=== PATIENT | female | born 1950 | race Caucasian/White ===

== ENCOUNTER 2018-11-02 19:30 | Outpatient (CLI) | payer MEDICARE | END 2018-11-02 19:31 | disposition home or self-care (01) | LOC: SLEEPLAB 19:30 | PROVIDERS: ATTEND Family Medicine | DX: F51.9 Sleep disorder not due to a substance or known physiological condition, unspecified (principal); G47.10 Hypersomnia, unspecified; G47.9 Sleep disorder, unspecified; R53.83 Other fatigue; E66.9 Obesity, unspecified; K21.9 Gastro-esophageal reflux disease without esophagitis; R06.83 Snoring; F41.9 Anxiety disorder, unspecified; G47.00 Insomnia, unspecified; I10 Essential (primary) hypertension; E11.9 Type 2 diabetes mellitus without complications; G47.33 Obstructive sleep apnea (adult) (pediatric) | CPT/HCPCS: 95810 ==

== ENCOUNTER 2022-05-23 16:22 | Observation (INO) | payer MEDICARE ==
[~2022-05-23 16:22] MED LIST: Iopamidol-370 76% 500 ML 1 ML ONE
[2022-05-23 17:21] LABS: #Basophils 0.1 thou/uL (0.0-0.2); #Eosinphils 0.2 thou/uL (0.0-0.7); #Lymphocytes 2.6 thou/uL (1.20-3.40); #Monocytes 0.6 thou/uL (0.11-0.59); #Neutrophils 5.2 thou/uL (1.40-6.50); %Basophils 0.7 % (0.0-1.0); %Eosinophils 2.4 % (0.0-10.0); %Lymphocytes 29.6 % (21.0-51.0); %Monocytes 6.7 % (0.0-10.0); %Neutrophils 60.6 % (42.0-75.0); Hemoglobin 17.2 g/dL (12.0-16.0); Mean Corpuscular HGB CONC 34.5 g/dL (32.0-36.0); Mean Corpuscular Hemoglobin 32.4 pg (27.0-31.0); Mean Corpuscular Volume 93.8 fL (78.0-98.0); Mean Platelet Volume 8.2 fL (7.4-10.4); Platelet Count 258 thou/uL (130-400); RBC Distribution Width 15.8 % (11.5-14.5); White Blood Cell (WBC) Count 8.6 thou/uL (4.8-10.8)
[2022-05-23 17:38] LABS: ALT (SGPT) 31 U/L (8-55); AST (SGOT) 24 U/L (5-34); Albumin 4.2 g/dL (3.4-4.8); Alkaline Phosphatase 123 U/L (40-110); Anion Gap 16 mmol/L (10-20); BUN (Urea Nitrogen) 17 mg/dL (9.8-20.1); Bilirubin, Total 0.6 mg/dL (0.2-1.2); CK (CPK) 36 U/L (29-168); Calc. Creatinine Clearance 0 mL/min (70-130); Calcium 10.8 mg/dL (7.8-10.44); Carbon Dioxide 29 mmol/L (23-31); Chloride 97 mmol/L (98-107); Estimated GFR 74; Globulin 3.4 g/dL (2.4-3.5); Glucose 170 mg/dL (80-115); Potassium 3.1 mmol/L (3.5-5.1); Protein, Total 7.6 g/dL (5.8-8.1); Sodium 139 mmol/L (136-145)
[2022-05-23 17:58] LABS: Lipase 25 U/L (8-78); Magnesium 2.1 mg/dL (1.6-2.6)
[2022-05-23] MEDS ORDERED: Meclizine HCl 25 MG TAB ONE (18:22)
[2022-05-23 20:09] LABS: Bilirubin Negative (Negative); Blood, Urine Negative (Negative); Clarity Clear (Clear); Glucose, Urine (Dipstick) Normal (Negative); Ketone, Urine Negative (Negative); Leukocyte Negative Leu/uL (Negative); Nitrite Negative (Negative); Protein, Urine (Dipstick) Negative (Neg-Trace); Specific Gravity, Urine 1.005 (1.002-1.036); Urobilinogen Normal mg/dL (Less than 2)
[2022-05-23] MEDS ORDERED: Lorazepam 2 MG/ML VIAL ONE (20:15)
[2022-05-23] MEDS ORDERED: Potassium Bicarbonate/Cit Ac 20 MEQ TAB PO SCH (22:30)
[2022-05-23 23:31] VITALS: BMI 28.6
[2022-05-24] MEDS: Sodium Chloride 0.9% 1,000 ML IV SCH ×2 (00:43→09:19)
[2022-05-24] MEDS ORDERED: HumaLOG 300 UNITS/3 ML VIAL SC PRN (04:42)
[2022-05-24] MEDS ORDERED: Dextrose 5% in Water 1,000 ML IV PRN (04:42)
[2022-05-24] MEDS ORDERED: Ondansetron PF 4 MG/2 ML Vial IVP PRN (04:42)
[2022-05-24] MEDS ORDERED: Acetaminophen 325 MG TAB PO PRN (04:42)
[2022-05-24] MEDS ORDERED: Dextrose 50% Abboject 50 ML SYRINGE SLOW IVP PRN (04:42)
[2022-05-24] MEDS ORDERED: predniSONE 20 MG TAB PO SCH (05:00)
[2022-05-24 05:23] LABS: #Basophils 0.1 thou/uL (0.0-0.2); #Eosinphils 0.3 thou/uL (0.0-0.7); #Monocytes 0.5 thou/uL (0.11-0.59); #Neutrophils 5.5 thou/uL (1.40-6.50); %Basophils 0.7 % (0.0-1.0); %Eosinophils 2.7 % (0.0-10.0); %Lymphocytes 32.4 % (21.0-51.0); %Monocytes 5.4 % (0.0-10.0); %Neutrophils 58.7 % (42.0-75.0); Hemoglobin 16.7 g/dL (12.0-16.0); Mean Corpuscular HGB CONC 33.3 g/dL (32.0-36.0); Mean Corpuscular Hemoglobin 33.2 pg (27.0-31.0); Mean Corpuscular Volume 99.5 fL (78.0-98.0); Mean Platelet Volume 11.4 fL (7.4-10.4); Platelet Count 172 thou/uL (130-400); RBC Distribution Width 12.5 % (11.5-14.5); Red Blood Cell (RBC) Count 5.03 mill/uL (4.20-5.40); White Blood Cell (WBC) Count 9.4 thou/uL (4.8-10.8)
[2022-05-24] MEDS ORDERED: Nicotine 21 MG PATCH TD SCH (06:00)
[2022-05-24 08:03] LABS: Chloride 104 mmol/L (98-107); Sodium 140 mmol/L (136-145)
[2022-05-24 08:04] LABS: Glucose 142 mg/dL (80-115)
[2022-05-24 08:06] LABS: Anion Gap 10 mmol/L (10-20); Carbon Dioxide 29 mmol/L (23-31)
[2022-05-24 08:08] LABS: BUN (Urea Nitrogen) 12 mg/dL (9.8-20.1); Calc. Creatinine Clearance 99 mL/min (70-130); Estimated GFR 94
[2022-05-24 08:11] LABS: Calcium 9.1 mg/dL (7.8-10.44)
[2022-05-24] MEDS ORDERED: Potassium Chloride 20 MEQ TAB PO SCH (08:45)
[2022-05-24] MEDS ORDERED: Amlodipine 5 MG TAB PO SCH (09:00)
[2022-05-24] MEDS ORDERED: Famotidine 20 MG TAB PO SCH (09:00)
[2022-05-24] MEDS ORDERED: Lisinopril/Hydrochlorothiazide 20/25 mg Tablet PO SCH (09:00)
[2022-05-24] MEDS ORDERED: Amlodipine 10 MG TAB PO SCH (10:45)
[2022-05-24] MEDS ORDERED: metFORMIN 500 MG TAB PO SCH (12:00)
[2022-05-24 16:45] VITALS: BP 156/81; TEMP 97.8
[2022-05-24] MEDS ORDERED: Aspirin Chewable 81 MG TAB PO SCH (21:00)
[2022-05-25] MEDS ORDERED: Amlodipine 10 MG TAB PO SCH (09:00)
== END 2022-05-24 17:30 | disposition home or self-care (01) ==
LOC: ERS 16:22 → NEURO 22:30
PROVIDERS: ADMIT Internal Medicine; ATTEND Internal Medicine
DX: H81.10 Benign paroxysmal vertigo, unspecified ear (principal); I10 Essential (primary) hypertension; F17.210 Nicotine dependence, cigarettes, uncomplicated; D75.1 Secondary polycythemia; E11.9 Type 2 diabetes mellitus without complications; I65.21 Occlusion and stenosis of right carotid artery; M47.812 Spondylosis without myelopathy or radiculopathy, cervical region; M50.322 Other cervical disc degeneration at C5-C6 level; I08.1 Rheumatic disorders of both mitral and tricuspid valves; R00.1 Bradycardia, unspecified; Z79.82 Long term (current) use of aspirin; Z79.84 Long term (current) use of oral hypoglycemic drugs; Z79.899 Other long term (current) drug therapy; Z88.0 Allergy status to penicillin; Z88.1 Allergy status to other antibiotic agents; Z20.822 Contact with and (suspected) exposure to COVID-19
CPT/HCPCS: 70450; 70498; 71045; 80048; 80053; 81003; 82550; 82962; 83690; 83735; 83880; 84484; 85025 ×2; 93005; 93306; 96361 ×2; 96374; 99285; G0378 ×3; U0003; U0005; 36415; 36416; J2060; J7050; Q9967

== ENCOUNTER 2023-05-07 16:35 | Inpatient (IN) | payer MEDICARE ==
[2023-05-07 19:02] LABS: #Eosinphils 0.2 thou/uL (0.0-0.7); #Monocytes 0.6 thou/uL (0.11-0.59); %Basophils 0.4 % (0.0-1.0); %Eosinophils 1.6 % (0.0-10.0); %Lymphocytes 23.8 % (21.0-51.0); %Monocytes 6.2 % (0.0-10.0); %Neutrophils 67.5 % (42.0-75.0); Hemoglobin 15.4 g/dL (12.0-16.0); Mean Corpuscular HGB CONC 34.2 g/dL (32.0-36.0); Mean Corpuscular Hemoglobin 31.9 pg (27.0-31.0); Mean Corpuscular Volume 93.2 fl (78.0-98.0); Mean Platelet Volume 12.1 fL (7.4-10.4); Platelet Count 282 10x3/uL (130-400); RBC Distribution Width 13.8 % (11.5-14.5); Red Blood Cell (RBC) Count 4.83 mill/uL (4.20-5.40); White Blood Cell (WBC) Count 10.3 10x3/uL (4.8-10.8)
[2023-05-07 19:29] LABS: ALT (SGPT) 28 U/L (8-55); AST (SGOT) 20 U/L (5-34); Alkaline Phosphatase 111 U/L (40-110); Anion Gap 15 mmol/L (10-20); BUN (Urea Nitrogen) 17 mg/dL (9.8-20.1); Bilirubin, Total 0.3 mg/dL (0.2-1.2); Calc. Creatinine Clearance 0 mL/min (70-130); Calcium 10.2 mg/dL (7.8-10.44); Carbon Dioxide 27 mmol/L (23-31); Chloride 101 mmol/L (98-107); Estimated GFR 58; Globulin 2.9 g/dL (2.4-3.5); Glucose 165 mg/dL (80-115); Potassium 3.1 mmol/L (3.5-5.1); Protein, Total 6.9 g/dL (5.8-8.1); Sodium 140 mmol/L (136-145)
[2023-05-07 19:30] LABS: Troponin I Less than 0.010 ng/mL (< 0.028)
[2023-05-07] MEDS ORDERED: Potassium Chloride 20 MEQ TAB ONE (20:05)
[2023-05-07] MEDS ORDERED: Acetaminophen 325 MG TAB PO PRN (21:33)
[2023-05-07] MEDS ORDERED: Ondansetron PF 4 MG/2 ML Vial IVP PRN (21:33)
[2023-05-07] MEDS ORDERED: Glucagon 1 MG/ML KIT IM PRN (21:36)
[2023-05-07] MEDS ORDERED: Dextrose 50% Abboject 50 ML SYRINGE SLOW IVP PRN (21:36)
[2023-05-07] MEDS ORDERED: Dextrose 5% in Water 1,000 ML IV PRN (21:36)
[2023-05-07 22:42] LABS: Magnesium 1.8 mg/dL (1.6-2.6)
[2023-05-07 23:37] VITALS: BMI 28.6
[2023-05-08 05:18] LABS: #Eosinphils 0.3 thou/uL (0.0-0.7); #Monocytes 0.6 thou/uL (0.11-0.59); #Neutrophils 5.2 thou/uL (1.40-6.50); %Basophils 0.4 % (0.0-1.0); %Eosinophils 2.7 % (0.0-10.0); %Lymphocytes 32.9 % (21.0-51.0); %Monocytes 6.8 % (0.0-10.0); %Neutrophils 56.9 % (42.0-75.0); Hematocrit 41.8 % (36.0-47.0); Hemoglobin 14.5 g/dL (12.0-16.0); Mean Corpuscular HGB CONC 34.7 g/dL (32.0-36.0); Mean Corpuscular Hemoglobin 32.4 pg (27.0-31.0); Mean Corpuscular Volume 93.3 fl (78.0-98.0); Mean Platelet Volume 11.9 fL (7.4-10.4); Platelet Count 244 10x3/uL (130-400); RBC Distribution Width 13.8 % (11.5-14.5); Red Blood Cell (RBC) Count 4.48 mill/uL (4.20-5.40); White Blood Cell (WBC) Count 9.2 10x3/uL (4.8-10.8)
[2023-05-08 05:46] LABS: Anion Gap 12 mmol/L (10-20); BUN (Urea Nitrogen) 19 mg/dL (9.8-20.1); Calc. Creatinine Clearance 78 mL/min (70-130); Calcium 9.4 mg/dL (7.8-10.44); Carbon Dioxide 28 mmol/L (23-31); Chloride 102 mmol/L (98-107); Estimated GFR 74; Glucose 159 mg/dL (80-115); Magnesium 1.8 mg/dL (1.6-2.6); Sodium 139 mmol/L (136-145)
[2023-05-08] MEDS ORDERED: Aspirin 81 mg Enteric Coated Tablet PO SCH (12:15)
[2023-05-08] MEDS ORDERED: Potassium Chloride 20 MEQ TAB PO SCH (12:30)
[2023-05-08] MEDS: HumaLOG 300 UNITS/3 ML VIAL SC PRN ×2 (12:52→20:27)
[2023-05-08] MEDS ORDERED: Clopidogrel Bisulfate 75 MG TAB PO SCH (13:00)
[2023-05-08] MEDS: metFORMIN 500 MG TAB PO SCH (17:56)
[2023-05-08] MEDS: Potassium Chloride 20 MEQ TAB PO SCH (17:56)
[2023-05-08] MEDS: Carvedilol 6.25 MG TAB PO SCH (20:26)
[2023-05-08] MEDS: Atorvastatin Calcium 40 MG TAB PO SCH (20:26)
[2023-05-08] MEDS ORDERED: Calcium Carbonate 500 MG ChewTAB PO PRN (20:32)
[2023-05-09] MEDS ORDERED: Amlodipine 10 MG TAB PO SCH (00:45)
[2023-05-09 06:07] LABS: #Eosinphils 0.2 thou/uL (0.0-0.7); #Monocytes 0.6 thou/uL (0.11-0.59); %Basophils 0.5 % (0.0-1.0); %Eosinophils 2.2 % (0.0-10.0); %Lymphocytes 29.6 % (21.0-51.0); %Monocytes 7.3 % (0.0-10.0); %Neutrophils 60.2 % (42.0-75.0); Hematocrit 43.7 % (36.0-47.0); Hemoglobin 14.6 g/dL (12.0-16.0); Mean Corpuscular HGB CONC 33.4 g/dL (32.0-36.0); Mean Corpuscular Hemoglobin 31.5 pg (27.0-31.0); Mean Corpuscular Volume 94.4 fl (78.0-98.0); Mean Platelet Volume 11.9 fL (7.4-10.4); Platelet Count 240 10x3/uL (130-400); Red Blood Cell (RBC) Count 4.63 mill/uL (4.20-5.40); White Blood Cell (WBC) Count 8.3 10x3/uL (4.8-10.8)
[2023-05-09 06:16] LABS: Hemoglobin A1c 7.9 % (4.0-6.0)
[2023-05-09] MEDS: HumaLOG 300 UNITS/3 ML VIAL SC PRN ×3 (06:17→20:28)
[2023-05-09 06:42] LABS: Anion Gap 12 mmol/L (10-20); BUN (Urea Nitrogen) 16 mg/dL (9.8-20.1); Calc. Creatinine Clearance 78 mL/min (70-130); Calcium 9.5 mg/dL (7.8-10.44); Carbon Dioxide 26 mmol/L (23-31); Cardiac Risk 4.1 (Less than 4.5); Chloride 106 mmol/L (98-107); Cholesterol 179 mg/dl (< 200 Desired); Estimated GFR 74; Glucose 184 mg/dL (80-115); HDL Cholesterol 44 mg/dL (>60 Neg Risk); LDL Cholesterol, Calculated 114 mg/dL; Magnesium 1.8 mg/dL (1.6-2.6); Potassium 3.5 mmol/L (3.5-5.1); Sodium 140 mmol/L (136-145); Triglycerides 105 mg/dL (Less than 150)
[2023-05-09] MEDS: Aspirin 81 mg Enteric Coated Tablet PO SCH (08:35)
[2023-05-09] MEDS: Clopidogrel Bisulfate 75 MG TAB PO SCH (08:35)
[2023-05-09] MEDS: Amlodipine 10 MG TAB PO SCH (08:35)
[2023-05-09] MEDS: metFORMIN 500 MG TAB PO SCH ×3 (08:35→16:21)
[2023-05-09] MEDS: Potassium Chloride 20 MEQ TAB PO SCH ×2 (08:35→16:21)
[2023-05-09] MEDS: Carvedilol 6.25 MG TAB PO SCH ×2 (08:36→20:11)
[2023-05-09] MEDS: hydrALAZINE 10 MG TAB PO SCH ×2 (16:21→20:10)
[2023-05-09] MEDS: Atorvastatin Calcium 40 MG TAB PO SCH (20:10)
[2023-05-10 04:26] VITALS: TEMP 97.9
[2023-05-10] MEDS: HumaLOG 300 UNITS/3 ML VIAL SC PRN ×2 (06:05→13:19)
[2023-05-10 06:43] LABS: #Basophils 0.1 thou/uL (0.0-0.2); #Eosinphils 0.2 thou/uL (0.0-0.7); #Monocytes 0.5 thou/uL (0.11-0.59); #Neutrophils 5.4 thou/uL (1.40-6.50); %Basophils 0.6 % (0.0-1.0); %Eosinophils 2.7 % (0.0-10.0); %Lymphocytes 27.7 % (21.0-51.0); %Neutrophils 62.8 % (42.0-75.0); Hematocrit 45.3 % (36.0-47.0); Hemoglobin 15.1 g/dL (12.0-16.0); Mean Corpuscular HGB CONC 33.3 g/dL (32.0-36.0); Mean Corpuscular Hemoglobin 32.1 pg (27.0-31.0); Mean Corpuscular Volume 96.4 fl (78.0-98.0); Mean Platelet Volume 11.3 fL (7.4-10.4); Platelet Count 258 10x3/uL (130-400); RBC Distribution Width 13.9 % (11.5-14.5); White Blood Cell (WBC) Count 8.6 10x3/uL (4.8-10.8)
[2023-05-10 07:07] LABS: Anion Gap 11 mmol/L (10-20); BUN (Urea Nitrogen) 13 mg/dL (9.8-20.1); Calc. Creatinine Clearance 89 mL/min (70-130); Calcium 9.2 mg/dL (7.8-10.44); Carbon Dioxide 22 mmol/L (23-31); Chloride 109 mmol/L (98-107); Estimated GFR 86; Glucose 154 mg/dL (80-115); Magnesium 1.8 mg/dL (1.6-2.6); Potassium 3.8 mmol/L (3.5-5.1); Sodium 138 mmol/L (136-145)
[2023-05-10] MEDS ORDERED: glipiZIDE 5 MG TAB PO SCH (07:30)
[2023-05-10] MEDS: Aspirin 81 mg Enteric Coated Tablet PO SCH (08:19)
[2023-05-10] MEDS: hydrALAZINE 10 MG TAB PO SCH (08:20)
[2023-05-10] MEDS: Clopidogrel Bisulfate 75 MG TAB PO SCH (08:20)
[2023-05-10] MEDS: Carvedilol 6.25 MG TAB PO SCH (08:20)
[2023-05-10] MEDS: Potassium Chloride 20 MEQ TAB PO SCH (08:20)
[2023-05-10] MEDS: metFORMIN 500 MG TAB PO SCH ×2 (08:20→13:19)
[2023-05-10] MEDS: Amlodipine 10 MG TAB PO SCH (08:20)
[2023-05-10 12:02] VITALS: BP 142/72
== END 2023-05-10 14:40 | DRG 65 ==
LOC: ERS 16:35 → 2SE 21:35 → OBSVTOIN 05-08 11:38
PROVIDERS: ADMIT Internal Medicine; ATTEND Family Medicine
DX: I63.9 Cerebral infarction, unspecified (principal); G81.91 Hemiplegia, unspecified affecting right dominant side; I11.9 Hypertensive heart disease without heart failure; E11.9 Type 2 diabetes mellitus without complications; K21.9 Gastro-esophageal reflux disease without esophagitis; S09.93XA Unspecified injury of face, initial encounter; S01.511A Laceration without foreign body of lip, initial encounter; W18.30XA Fall on same level, unspecified, initial encounter; F17.210 Nicotine dependence, cigarettes, uncomplicated; E87.6 Hypokalemia; H81.10 Benign paroxysmal vertigo, unspecified ear; E04.2 Nontoxic multinodular goiter; Z88.8 Allergy status to other drugs, medicaments and biological substances; Z88.0 Allergy status to penicillin; Z88.1 Allergy status to other antibiotic agents; Z79.82 Long term (current) use of aspirin; Z98.890 Other specified postprocedural states; Z90.89 Acquired absence of other organs; R47.1 Dysarthria and anarthria; R47.01 Aphasia
CPT/HCPCS: 36415; 36416; 70450; 70486; 70551; 72125; 80048; 80053; 80061; 83036; 83735; 84484; 85025; 93005; 93306; 93880; G0378; J1815

== ENCOUNTER 2023-10-15 13:37 | Outpatient (CLI) | payer MEDICARE ==
[2023-10-15] MEDS ORDERED: E-Z-HD 98% W/W 340GM BOT (x-ray ONLY) ONE (14:16)
[2023-10-15] MEDS ORDERED: Barium Sulfate 96% 176 GM BOT (xray ONLY) PO ONE (14:16)
== END 2023-10-15 13:38 | disposition home or self-care (01) ==
LOC: RAD 13:37
PROVIDERS: ATTEND Family Medicine
DX: R13.19 Other dysphagia (principal); K22.89 Other specified disease of esophagus; K21.9 Gastro-esophageal reflux disease without esophagitis
CPT/HCPCS: 74220

== ENCOUNTER 2024-01-01 12:48 | Outpatient (CLI) | payer MEDICARE | END 2024-01-01 12:49 | disposition home or self-care (01) | LOC: BICMRI 12:48 | PROVIDERS: ATTEND Family Medicine | DX: M51.16 Intervertebral disc disorders with radiculopathy, lumbar region (principal); M47.26 Other spondylosis with radiculopathy, lumbar region; M48.061 Spinal stenosis, lumbar region without neurogenic claudication; M47.817 Spondylosis without myelopathy or radiculopathy, lumbosacral region; M51.37 Other intervertebral disc degeneration, lumbosacral region; M48.07 Spinal stenosis, lumbosacral region; E11.65 Type 2 diabetes mellitus with hyperglycemia; E78.5 Hyperlipidemia, unspecified | CPT/HCPCS: 36415; 72148; 80053; 80061; 83036 ==

== ENCOUNTER 2024-02-18 13:25 | Outpatient (CLI) | payer MEDICARE | END 2024-02-18 13:26 | disposition home or self-care (01) | LOC: BICULT 13:25 | PROVIDERS: ATTEND Psychiatry & Neurology Neurology | DX: I63.9 Cerebral infarction, unspecified (principal) | CPT/HCPCS: 93880 ==

== ENCOUNTER 2024-07-18 09:32 | Outpatient (CLI) | payer MEDICARE | END 2024-07-18 09:33 | disposition home or self-care (01) | LOC: SCSMRI 09:32 | PROVIDERS: ATTEND Specialist | DX: M47.22 Other spondylosis with radiculopathy, cervical region (principal); M48.02 Spinal stenosis, cervical region | CPT/HCPCS: 72141 ==

== ENCOUNTER 2025-07-10 13:37 | Outpatient (CLI) | payer MEDICARE | END 2025-07-10 13:38 | disposition home or self-care (01) | LOC: RAD 13:37 | PROVIDERS: ATTEND Physician Assistant | DX: R05.1 Acute cough (principal) | CPT/HCPCS: 71046 ==